=== PATIENT | male | born 1970 | race Caucasian/White ===

== ENCOUNTER 2021-12-03 18:32 | Emergency (ER) | payer OTHER ==
[~2021-12-03 18:32] MED LIST: ACID REDUCER20 MG PO; CLARITIN 10MG T10 MG PO; CLONIDINE HCL0.1 M1 PO; DILANTIN CHEWAB50 MG PO; FOLIC ACID1 MG PO; HALOPERIDOL5 MG PO; HYDROCODON-ACE1 EAC2 PO; LEVETIRACE100 MG/1 M PO; LORAZEPAM0.5 MG PO; METHOCARBAMOL500 MG PO; METOPROLOL TART25 MG PO; NEURONTIN600 MG PO; NORCO 10-325 T1 EACH PO; ONE DAILY COMP1 EACH PO; RISPERIDONE1 MG PO; SODIUM BICARBO650 MG PO; SUMATRIPTAN SU100 MG PO; TOPIRAMATE25 MG PO; VENTOLIN HFA 66.7 GM INH; VITAMIN B-1100 M1 PO
[2021-12-03 19:23] LABS: HEMOGLOBIN 12.4 gm/dl (14.0-17.5); RED BLOOD COUNT 4.15 M/UL (4.20-5.50); WHITE BLOOD COUNT 10.4 K/UL (4.5-11.0)
[2021-12-03 19:49] LABS: BUN/CREATININE RATIO 8 (0-10)
[2021-12-03] MEDS ORDERED: TORADOL 10 MG T10 MG PO (22:57)
== END 2021-12-03 23:12 | disposition home or self-care (01) ==
LOC: ER1 18:32
PROVIDERS: Physician Assistant Medical
DX: R07.9 Chest pain, unspecified (principal); F17.200 Nicotine dependence, unspecified, uncomplicated; Z88.0 Allergy status to penicillin
CPT/HCPCS: 71045; 80053; 82550; 82553; 84484; 85025; 85379; 93005; 96374; 99285; J1885